=== PATIENT | female | born 1960 ===

== ENCOUNTER 2017-02-04 21:51 | Emergency (ER) | payer OTHER ==
--- NOTE | 2017-02-04 22:25 | ED ORDER SUMMARY ---
..... Patient: GEORGINA CAREY OrderSheet [facility] VisitID: [id number] [address] [place] [address] 56y, F Registration Date/Time: 02/04/2017 ORDER SHEET Weight: 60.3 kg (stated) Allergies: Compazine GENERAL ORDERS: Visual Acuity (22:13 02/04/2017 Martina Gill) ([facility] 22:15 SRedmond) (22:21 SRedmond) MEDICATION ORDERS: Proparacaine Eye Drops (Solution 0.5 %) 2 drops (NOW) (22:09 02/04/2017 Martina Gill) (22:13 Jaydon Freeman) IV FLUIDS: ORDER SHEET NOTES: [Electronically signed by Taty Kirby R.N. (22:30 02/04/2017)] [Electronically signed by Lana Felipe P.A.-C (22:32 02/04/2017)] [Electronically locked/signed by Taty Kirby R.N. (22:30 02/04/2017)]
--- NOTE | 2017-02-04 22:25 | ED NURSING NOTES ---
Clinical Report - Nurses [facility] [address] [place] [address] 02/04/2017 21:53 Patient: GEORGINA CAREY TRIAGE Triage time 22:00 Feb 04 2017. Acuity: LEVEL 3. Chief Complaint: (watering burning eyes, running nose). 22:00 02/04/17. SEPSIS SCREEN: Sepsis Screen. Negative (no infection suspected/documented). MERVAT COMA SCORE: Mervat Coma Scale: 15- eyes open spontaneously (4); best verbal response- oriented x 4 (5); best motor response- obeys commands (6). --22:03 Taty Kirby R.N. 22:00 02/04/17. BP: 155/81. HR: 87. RR: 22. O2 saturation: 97%. Temp: 98.6 F. Pain level now: 10. --22:03 Taty Kirby R.N. Weight: 60.3 kg stated. Height/Length: 64 inches Per Patient. BMI: 22.8. --21:58 Taty Kirby R.N. Medications Albuterol MDI. --22:00 Taty Kirby R.N. Medication/allergy information source: the patient. --22:03 Taty Kirby R.N. Allergies Compazine. ("twists my jaw") --22:00 Taty Kirby R.N. History Arrived by private vehicle. Historian: patient. Accompanied by family. This started today. ( states used an astringent last night and was fine. tonight, eyes started watering profusely, nothing different in daily patterns. c/o photophobia as well). No fever, weakness, cough, difficulty breathing or skin rash. Denies muscle aches. 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 PAST MEDICAL HX: Has not received seasonal influenza immunization. SOCIAL HX: Former smoker. No alcohol use or drug use. No infectious disease exposure. ABUSE ASSESSMENT: No report of abuse. FALL RISK ASSESSMENT: Fall risk assessment completed. No fall risk identified. NUTRITIONAL RISK ASSESSMENT: The nutritional risk assessment revealed no deficiencies. FUNCTIONAL ASSESSMENT: Functional assessment: no impairments noted. LEARNING NEEDS ASSESSMENT: The learning needs assessment revealed no barriers. SKIN INTEGRITY ASSESSMENT: Skin integrity risk assessment completed. No skin integrity risk identified. --22:03 Taty Kirby R.N. PROBLEMS: Dental Abscess. MRSA Infection. PTSD. Pulmonary Embolism. Asthma. Depression. --22:00 Taty Kirby R.N. ADDITIONAL SURGERIES: Oophorectomy. --22:00 Taty Kirby R.N. Interventions ID band on patient. --22:03 Taty Kirby R.N. PHYSICAL ASSESSMENT 22:07 02/04/17. Ambulatory to room. GENERAL / NEURO / PSYCH: Alert. Oriented X 4. Appears in pain and in distress. HEENT: Conjunctival findings present: redness of the right conjunctiva and redness of the left conjunctiva. ( both eyes watering continuously). RESPIRATORY: Breath sounds within normal limits. CVS: Pulses within normal limits. SKIN: Skin intact. Skin is warm and dry. Normal skin turgor. --22:07 Tayt Kirby R.N. NURSING PROGRESS NOTES 22:06 02/04/17. The initial plan of care for this patient includes an assessment with efforts to address patient positioning and appropriate ambient lighting. This plan of care was discussed with the patient. Reassurance given. Patient identifiers checked. Call light placed in reach. Side rails up x 1. Bed placed in lowest position. Brakes of bed on. Patient ready for evaluation- ED physician notified. --22:06 Taty Kirby R.N. 22:12 02/04/2017 Proparacaine Eye Drops Opthalmic solution 2 drop given. Given in both eyes. Allergies verified and confirmed 5 rights. --22:12 Taty Kirby R.N. ( Visual Acuity: Both eyes open: 20/200 Right eye only: 20/200 Left eye only: 20/200). --22:19 Sandrine Chaudhary ER Tech1. DISPOSITION / DISCHARGE 22:30 02/04/17. Departure time: 22:30 Feb 04 2017. Condition at departure: improved and stable. The goals identified in the patient's plan of care were met. No learning barriers present. Discharge instructions provided and reviewed with the patient. Reviewed medication(s) side effects, precautions, dosing and course information. Prescription(s) given to the patient. Reviewed eye care instructions. Reviewed referral to an soap grinder and a primary care physician for followup. Summary of care provided to patient via paper. Patient verbalized understanding. Written instructions provided in Sinhala. The patient was discharged home and accompanied by family. She left the Emergency Department ambulatory and via private vehicle. Family member driving. --22:30 Taty Kirby R.N. 22:00 02/04/17. BP: 155/81. HR: 87. RR: 22. O2 saturation: 97%. Temp: 98.6 F. Pain level now: 5/10. --22:30 Taty Kirby R.N. Locked/Released at 02/04/2017 22:30 by Taty Kirby R.N.
--- NOTE | 2017-02-04 22:25 | ED NURSING NOTES ---
Clinical Report - Nurses [facility] [address] [place] [address] 02/04/2017 21:53 Patient: GEORGINA CAREY TRIAGE Triage time 22:00 Feb 04 2017. Acuity: LEVEL 3. Chief Complaint: (watering burning eyes, running nose). 22:00 02/04/17. SEPSIS SCREEN: Sepsis Screen. Negative (no infection suspected/documented). MERVAT COMA SCORE: Mervat Coma Scale: 15- eyes open spontaneously (4); best verbal response- oriented x 4 (5); best motor response- obeys commands (6). --22:03 Taty Kirby R.N. 22:00 02/04/17. BP: 155/81. HR: 87. RR: 22. O2 saturation: 97%. Temp: 98.6 F. Pain level now: 10. --22:03 Taty Kirby R.N. Weight: 60.3 kg stated. Height/Length: 64 inches Per Patient. BMI: 22.8. --21:58 Taty Kirby R.N. Medications Albuterol MDI. --22:00 Taty Kirby R.N. Medication/allergy information source: the patient. --22:03 Taty Kirby R.N. Allergies Compazine. ("twists my jaw") --22:00 Taty Kirby R.N. History Arrived by private vehicle. Historian: patient. Accompanied by family. This started today. ( states used an astringent last night and was fine. tonight, eyes started watering profusely, nothing different in daily patterns. c/o photophobia as well). No fever, weakness, cough, difficulty breathing or skin rash. Denies muscle aches. 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 PAST MEDICAL HX: Has not received seasonal influenza immunization. SOCIAL HX: Former smoker. No alcohol use or drug use. No infectious disease exposure. ABUSE ASSESSMENT: No report of abuse. FALL RISK ASSESSMENT: Fall risk assessment completed. No fall risk identified. NUTRITIONAL RISK ASSESSMENT: The nutritional risk assessment revealed no deficiencies. FUNCTIONAL ASSESSMENT: Functional assessment: no impairments noted. LEARNING NEEDS ASSESSMENT: The learning needs assessment revealed no barriers. SKIN INTEGRITY ASSESSMENT: Skin integrity risk assessment completed. No skin integrity risk identified. --22:03 Taty Kirby R.N. PROBLEMS: Dental Abscess. MRSA Infection. PTSD. Pulmonary Embolism. Asthma. Depression. --22:00 Taty Kirby R.N. ADDITIONAL SURGERIES: Oophorectomy. --22:00 Taty Kirby R.N. Interventions ID band on patient. --22:03 Taty Kirby R.N. PHYSICAL ASSESSMENT 22:07 02/04/17. Ambulatory to room. GENERAL / NEURO / PSYCH: Alert. Oriented X 4. Appears in pain and in distress. HEENT: Conjunctival findings present: redness of the right conjunctiva and redness of the left conjunctiva. ( both eyes watering continuously). RESPIRATORY: Breath sounds within normal limits. CVS: Pulses within normal limits. SKIN: Skin intact. Skin is warm and dry. Normal skin turgor. --22:07 Taty Kirby R.N. NURSING PROGRESS NOTES 22:06 02/04/17. The initial plan of care for this patient includes an assessment with efforts to address patient positioning and appropriate ambient lighting. This plan of care was discussed with the patient. Reassurance given. Patient identifiers checked. Call light placed in reach. Side rails up x 1. Bed placed in lowest position. Brakes of bed on. Patient ready for evaluation- ED physician notified. --22:06 Taty Kirby R.N. 22:12 02/04/2017 Proparacaine Eye Drops Opthalmic solution 2 drop given. Given in both eyes. Allergies verified and confirmed 5 rights. --22:12 Taty Kirby R.N. ( Visual Acuity: Both eyes open: 20/200 Right eye only: 20/200 Left eye only: 20/200). --22:19 Sandrine Chaudhary ER Tech1. DISPOSITION / DISCHARGE 22:30 02/04/17. Departure time: 22:30 Feb 04 2017. Condition at departure: improved and stable. The goals identified in the patient's plan of care were met. No learning barriers present. Discharge instructions provided and reviewed with the patient. Reviewed medication(s) side effects, precautions, dosing and course information. Prescription(s) given to the patient. Reviewed eye care instructions. Reviewed referral to an pleat taper and a primary care physician for followup. Summary of care provided to patient via paper. Patient verbalized understanding. Written instructions provided in Latvian. The patient was discharged home and accompanied by family. She left the Emergency Department ambulatory and via private vehicle. Family member driving. --22:30 Taty Kirby R.N. 22:00 02/04/17. BP: 155/81. HR: 87. RR: 22. O2 saturation: 97%. Temp: 98.6 F. Pain level now: 5/10. --22:30 Taty Kirby R.N. Locked/Released at 02/04/2017 22:30 by Taty Kirby R.N.
--- NOTE | 2017-02-04 22:25 | ED CLINICAL REPORT ---
Clinical Report - Physicians/Mid Levels [facility] [address] [place] [address] 02/04/2017 21:53 Patient: GEORGINA CAREY Time Seen: 22:28 Feb 04 2017. Arrived- By private vehicle. Historian- patient. HISTORY OF PRESENT ILLNESS Chief Complaint: EYE PAIN and IRRITATION. This started yesterday, involves the right and left eye, is characterized as mild and is still present. The patient did not sustain an injury. Not injured from contact lenses. No direct trauma to the eyes. No chemical exposure or suspected foreign body in eye. Eye pain, discomfort, burning, redness and irritation. Eye itching. ( Reports supposed to wear corrective lenses, but does not. NO direct trauma, possible irritation from a cream. NO fevers, no chills. NO contact lense wearing status.). REVIEW OF SYSTEMS All systems otherwise negative, except as recorded above. PAST HISTORY No history of prior eye injury. She does not wear contact lenses. Problems: Dental Abscess. Abscess. MRSA Infection. Immunizations. PTSD. Pneumonia. Pulmonary Embolism. Asthma. Depression. Additional Surgeries: Oophorectomy. Medications: Albuterol MDI. Allergies: Compazine. ("twists my jaw"). SOCIAL HISTORY Former smoker. No alcohol use or drug use. PHYSICAL EXAM Vital Signs: 02/04/2017 22:00 BP: 155/81. HR: 87. RR: 22. O2 saturation: 97%. Temp: 98.6 F. Pain level now: 5/10. Appearance: Alert. Rt Eye: Injected conjunctiva. Pupil regular. No eyelid edema, conjunctival foreign body or EOM palsy. Eyes: Visual acuity noted. Right and left cornea examined with fluorescein stain. Eyelids appear normal to inspection. Corneas appear normal to inspection. Pupils equal, round and reactive to light. EOMs intact. Lt Eye: Left eye exam normal. Injected conjunctiva. CVS: Normal heart rate and rhythm. Heart sounds normal. Respiratory: No respiratory distress. Breath sounds normal. PROGRESS AND PROCEDURES Course of Care: clear drainage, with injection, no trauma, h/o poor vision requiring lenses, however does not wear. No signs of ulcer, no signs of dye uptake. Stable. Not trauma. Patient is stable. Symptoms better. Patient/family counseled. Disposition: Discharged. Condition: good. CLINICAL IMPRESSION Acute conjunctivitis of the right eye and left eye. INSTRUCTIONS (wilmer eye Cool packs to the eye). Prescription Medications: Tylenol with Codeine Tylenol #3 (30 mg / 300 mg) : take 1 tablet orally every 6 hours as needed for pain. Dispense ten (10). No refill. Polytrim ophthalmic solution: Instill 1 drop into affected eye every 3 hours while awake (max 6 doses per day) for 1 week. Dispense five (5) mL. No refills. Substitution is permissible. Motrin 800 mg tablets: every 8 hours for 3 days, as needed for pain. Dispense ten (10). No refill. OTC Medications: Take Benadryl according to label instructions. Available over the counter. Follow-up: Follow up with a specialist. (Electronically signed by Lana Felipe P.A.-C 02/04/2017 22:32)
--- NOTE | 2017-02-04 22:25 | ED CLINICAL REPORT ---
Clinical Report - Physicians/Mid Levels [facility] [address] [place] [address] 02/04/2017 21:53 Patient: GEORGINA CAREY Time Seen: 22:28 Feb 04 2017. Arrived- By private vehicle. Historian- patient. HISTORY OF PRESENT ILLNESS Chief Complaint: EYE PAIN and IRRITATION. This started yesterday, involves the right and left eye, is characterized as mild and is still present. The patient did not sustain an injury. Not injured from contact lenses. No direct trauma to the eyes. No chemical exposure or suspected foreign body in eye. Eye pain, discomfort, burning, redness and irritation. Eye itching. ( Reports supposed to wear corrective lenses, but does not. NO direct trauma, possible irritation from a cream. NO fevers, no chills. NO contact lense wearing status.). REVIEW OF SYSTEMS All systems otherwise negative, except as recorded above. PAST HISTORY No history of prior eye injury. She does not wear contact lenses. Problems: Dental Abscess. Abscess. MRSA Infection. Immunizations. PTSD. Pneumonia. Pulmonary Embolism. Asthma. Depression. Additional Surgeries: Oophorectomy. Medications: Albuterol MDI. Allergies: Compazine. ("twists my jaw"). SOCIAL HISTORY Former smoker. No alcohol use or drug use. PHYSICAL EXAM Vital Signs: 02/04/2017 22:00 BP: 155/81. HR: 87. RR: 22. O2 saturation: 97%. Temp: 98.6 F. Pain level now: 5/10. Appearance: Alert. Rt Eye: Injected conjunctiva. Pupil regular. No eyelid edema, conjunctival foreign body or EOM palsy. Eyes: Visual acuity noted. Right and left cornea examined with fluorescein stain. Eyelids appear normal to inspection. Corneas appear normal to inspection. Pupils equal, round and reactive to light. EOMs intact. Lt Eye: Left eye exam normal. Injected conjunctiva. CVS: Normal heart rate and rhythm. Heart sounds normal. Respiratory: No respiratory distress. Breath sounds normal. PROGRESS AND PROCEDURES Course of Care: clear drainage, with injection, no trauma, h/o poor vision requiring lenses, however does not wear. No signs of ulcer, no signs of dye uptake. Stable. Not trauma. Patient is stable. Symptoms better. Patient/family counseled. Disposition: Discharged. Condition: good. CLINICAL IMPRESSION Acute conjunctivitis of the right eye and left eye. INSTRUCTIONS (wilmer eye Cool packs to the eye). Prescription Medications: Tylenol with Codeine Tylenol #3 (30 mg / 300 mg) : take 1 tablet orally every 6 hours as needed for pain. Dispense ten (10). No refill. Polytrim ophthalmic solution: Instill 1 drop into affected eye every 3 hours while awake (max 6 doses per day) for 1 week. Dispense five (5) mL. No refills. Substitution is permissible. Motrin 800 mg tablets: every 8 hours for 3 days, as needed for pain. Dispense ten (10). No refill. OTC Medications: Take Benadryl according to label instructions. Available over the counter. Follow-up: Follow up with a specialist. (Electronically signed by Lana Felipe P.A.-C 02/04/2017 22:32)
--- NOTE | 2017-02-04 22:25 | ED ORDER SUMMARY ---
..... Patient: GEORGINA CAREY OrderSheet [facility] VisitID: [id number] [address] [place] [address] 56y, F Registration Date/Time: 02/04/2017 ORDER SHEET Weight: 60.3 kg (stated) Allergies: Compazine GENERAL ORDERS: Visual Acuity (22:13 02/04/2017 Martina Gill) ([facility] 22:15 SRedmond) (22:21 SRedmond) MEDICATION ORDERS: Proparacaine Eye Drops (Solution 0.5 %) 2 drops (NOW) (22:09 02/04/2017 Martina Gill) (22:13 Jaydon Freeman) IV FLUIDS: ORDER SHEET NOTES: [Electronically signed by Taty Kirby R.N. (22:30 02/04/2017)] [Electronically signed by Lana Felipe P.A.-C (22:32 02/04/2017)] [Electronically locked/signed by Taty Kirby R.N. (22:30 02/04/2017)]
--- NOTE | 2017-02-04 22:32 | ED DISCHARGE INSTRUCTIONS ---
Patient: GEORGINA CAREY General Instructions [facility] VisitID: [id number] [place] [address] 56y, F Registration Date/Time: 02/04/2017 Acute conjunctivitis of the right eye and left eye. INSTRUCTIONS (guillen eye Cool packs to the eye). Prescription Medications: Tylenol with Codeine Tylenol #3 (30 mg / 300 mg) : take 1 tablet orally every 6 hours as needed for pain. Dispense ten (10). No refill. Polytrim ophthalmic solution: Instill 1 drop into affected eye every 3 hours while awake (max 6 doses per day) for 1 week. Dispense five (5) mL. No refills. Substitution is permissible. Motrin 800 mg tablets: every 8 hours for 3 days, as needed for pain. Dispense ten (10). No refill. OTC Medications: Take Benadryl according to label instructions. Available over the counter. Follow-up: Follow up with a specialist. ADDITIONAL INFORMATION Conjunctivitis, Non-Specific The membrane that covers your eye is inflamed. Any itching, burning or irritation should go away within the next 24 hours. Conjunctivitis may be related to a particle that was in your eye. If so, it was washed out with your tears or irrigation treatment. Being exposed to liquid chemicals or fumes may also cause this reaction. Your condition does not appear to be due to an eye infection. Home Care: Apply a cold pack (ice in a plastic bag, wrapped in a towel) over the eye for 20 minutes at a time. This will reduce pain. Eye drops may be prescribed to reduce irritation or redness. Otherwise, Visine or similar zcrm-[id number] decongestant eye drops may be used. You may use acetaminophen (Tylenol) or ibuprofen (Motrin, Advil) to control pain, unless another medicine was prescribed. [ NOTE: If you have chronic liver or kidney disease or ever had a stomach ulcer or GI bleeding, talk with your doctor before using these medicines.] Follow Up with your doctor or this facility as directed, or if your symptoms have not improved after 24 hours. Get Prompt Medical Attention if any of the following occur: Increased eyelid swelling Increase in eye pain Increased redness or drainage from the eye Failure of normal vision to return within 24-48 hours. Acetaminophen, Codeine Phosphate Oral tablet What is this medicine? ACETAMINOPHEN; CODEINE (a set a ROBI yassine arnie; IGNACIO olvera) is a pain reliever. It is used to treat mild to moderate pain. How should I use this medicine? Take this medicine by mouth with a full glass of water. Follow the directions on the prescription label. If the medicine upsets your stomach, take the medicine with food or milk. Do not take more medicine than you are told to take. Talk to your insurance counsel regarding the use of this medicine in children. Special care may be needed. What side effects may I notice from receiving this medicine? Side effects that you should report to your doctor or health animal daycare provider as soon as possible: allergic reactions like skin rash, itching or hives, swelling of the face, lips, or tongue breathing difficulties, wheezing confusion light headedness or fainting spells severe stomach pain yellowing of the skin or the whites of the eyes Side effects that usually do not require medical attention (report to your doctor or health animal daycare provider if they continue or are bothersome): dizziness drowsiness nausea, vomiting What may interact with this medicine? alcohol antihistamines benztropine drugs for bladder problems like solifenacin, trospium, oxybutynin, tolterodine, hycosamine, and methscopolamine drugs for breathing problems like ipratropium and tiotropium drugs for certain stomach or intestine problems like propantheline, homatropine methylbromide, glycopyrrolate, atropine, belladonna, and dicyclomine medicines for depression, anxiety, or psychotic disturbances medicines for sleep muscle relaxants naltrexone narcotic medicines (opiates) for pain phenothiazines like perphenazine, thioridazine, chlorpromazine, mesoridazine, fluphenazine, prochlorperazine, promazine, trifluoperazine scopolamine tramadol trihexyphenidyl What if I miss a dose? If you miss a dose, take it as soon as you can. If it is almost time for your next dose, take only that dose. Do not take double or extra doses. Where should I keep my medicine? Keep out of the reach of children. This medicine can be abused. Keep your medicine in a safe place to protect it from theft. Do not share this medicine with anyone. Selling or giving away this medicine is dangerous and against the law. Store at room temperature between 15 and 30 degrees C (59 and 86 degrees F). Protect from light. Keep container tightly closed. Throw away any unused medicine after the expiration date. Discard unused medicine and used packaging carefully. Pets and children can be harmed if they find used or lost packages. What should I tell my health care provider before I take this medicine? They need to know if you have any of these conditions: brain tumor Crohn's disease, inflammatory bowel disease, or ulcerative colitis drink more than 3 alcohol containing drinks per day drug abuse or addiction head injury heart or circulation problems kidney disease or problems going to the bathroom liver disease lung disease, asthma, or breathing problems an unusual or allergic reaction to acetaminophen, codeine, salicylates, other opioid analgesics, other medicines, foods, dyes, or preservatives or trying to get breast-feeding What should I watch for while using this medicine? Tell your doctor or health animal daycare provider if your pain does not go away, if it gets worse, or if you have new or a different type of pain. You may develop tolerance to the medication. Tolerance means that you will need a higher dose of the medication for pain relief. Tolerance is normal and is expected if you take the medicine for a long time. Do not suddenly stop taking your medicine because you may develop a severe reaction. Your body becomes used to the medicine. This does NOT mean you are addicted. Addiction is a behavior related to getting and using a drug for a non medical reason. If you have pain, you have a medical reason to take pain medicine. Your doctor will tell you how much medicine to take. If your doctor wants you to stop the medicine, the dose will be slowly lowered over time to avoid any side effects. You may get drowsy or dizzy. Do not drive, use machinery, or do anything that needs mental alertness until you know how this medicine affects you. Do not stand or sit up quickly, especially if you are an older patient. This reduces the risk of dizzy or fainting spells. Alcohol may interfere with the effect of this medicine. Avoid alcoholic drinks. There are different types of narcotic medicines (opiates) for pain. If you take more than one type at the same time, you may have more side effects. Give your health care provider a list of all medicines you use. Your doctor will tell you how much medicine to take. Do not take more medicine than directed. Call emergency for help if you have problems breathing. The medicine will cause constipation. Try to have a bowel movement at least every 2 to 3 days. If you do not have a bowel movement for 3 days, call your doctor or health animal daycare provider. Do not take Tylenol (acetaminophen) or medicines that have acetaminophen with this medicine. Too much acetaminophen can be very dangerous. Many nonprescription medicines contain acetaminophen. Always read the labels carefully to avoid taking more acetaminophen. Immediately call your physician or get emergency help if you are breast-feeding and your baby is sleepier than usual, is limp, or has difficulty or breathing. You have been given the following additional information: Conjunctivitis, Non-Specific Acetaminophen, Codeine Phosphate Oral tablet (Electronically signed by Lana Felipe P.A.-C 02/04/2017 22:32)
--- NOTE | 2017-02-04 22:32 | ED MED RECONCILIATION SUMMARY ---
Patient: GEORGINA CAREY Medication Reconciliation Report [facility] VisitID: [id number] [address] [place] [address] 56y, F Registration Date/Time: 02/04/2017 Weight: 60.3 kg Height/Length: 64 in. BMI: 22.8 ALLERGIES: Compazine The patient's Home Medications are listed below: THE FOLLOWING MEDICATIONS NEED TO BE RECONCILED: Albuterol I The source(s) of the original Home Medication information: patient The following Medications were given to the patient in the Emergency Department: Proparacaine [Eye Drops] Eye Drops 2 drop, administered: 02/04/2017 10:12:00 PM The following Medications were prescribed to the patient: Take Benadryl according to label instructions. Available over the counter. -- Lana Felipe, P.A.-C Tylenol with Codeine Tylenol #3 (30 mg / 300 mg) : take 1 tablet orally every 6 hours as needed for pain. Dispense ten (10). No refill. -- Lana Felipe, P.A.-C Polytrim ophthalmic solution: Instill 1 drop into affected eye every 3 hours while awake (max 6 doses per day) for 1 week. Dispense five (5) mL. No refills. Substitution is permissible. -- Lana Felipe, P.A.-C Motrin 800 mg tablets: every 8 hours for 3 days, as needed for pain. Dispense ten (10). No refill. -- Lana Felipe, P.A.-C
--- NOTE | 2017-02-04 22:32 | ED MED RECONCILIATION SUMMARY ---
Patient: GEORGINA CAREY Medication Reconciliation Report [facility] VisitID: [id number] [address] [place] [place] [address] 56y, F Registration Date/Time: 02/04/2017 Weight: 60.3 kg Height/Length: 64 in. BMI: 22.8 ALLERGIES: Compazine The patient's Home Medications are listed below: THE FOLLOWING MEDICATIONS NEED TO BE RECONCILED: Albuterol I The source(s) of the original Home Medication information: patient The following Medications were given to the patient in the Emergency Department: Proparacaine [Eye Drops] Eye Drops 2 drop, administered: 02/04/2017 10:12:00 PM The following Medications were prescribed to the patient: Take Benadryl according to label instructions. Available over the counter. -- Lana Felipe, P.A.-C Tylenol with Codeine Tylenol #3 (30 mg / 300 mg) : take 1 tablet orally every 6 hours as needed for pain. Dispense ten (10). No refill. -- Lana Felipe, P.A.-C Polytrim ophthalmic solution: Instill 1 drop into affected eye every 3 hours while awake (max 6 doses per day) for 1 week. Dispense five (5) mL. No refills. Substitution is permissible. -- Lana Felipe, P.A.-C Motrin 800 mg tablets: every 8 hours for 3 days, as needed for pain. Dispense ten (10). No refill. -- Lana Felipe, P.A.-C
--- NOTE | 2017-02-04 22:32 | ED MAR SUMMARY ---
..... Medication Administration Record [facility] [address] [place] [address] Patient: GEORGINA CAREY Visit ID: [id number] 56y, F Weight: 60.3 kg Height/Length: 64 in BMI: 22.8 ALLERGIES: Compazine Given 22:12 02/04/2017 Taty Kirby R.N. Medication Administered: PROPARACAINE [EYE DROPS], Dose: 2 drop Opthalmic solution Eye Drops. Medication Ordered: Proparacaine Eye Drops (Solution 0.5 %) 2 drops (NOW).
--- NOTE | 2017-02-04 22:32 | ED MAR SUMMARY ---
..... Medication Administration Record [facility] [address] [place] [address] Patient: GEORGINA CAREY Visit ID: [id number] 56y, F Weight: 60.3 kg Height/Length: 64 in BMI: 22.8 ALLERGIES: Compazine Given 22:12 02/04/2017 Taty Kirby R.N. Medication Administered: PROPARACAINE [EYE DROPS], Dose: 2 drop Opthalmic solution Eye Drops. Medication Ordered: Proparacaine Eye Drops (Solution 0.5 %) 2 drops (NOW).
--- NOTE | 2017-02-04 22:32 | ED DISCHARGE INSTRUCTIONS ---
Patient: GEORGINA CAREY General Instructions [facility] VisitID: [id number] [place] [address] 56y, F Registration Date/Time: 02/04/2017 Acute conjunctivitis of the right eye and left eye. INSTRUCTIONS (guillen eye Cool packs to the eye). Prescription Medications: Tylenol with Codeine Tylenol #3 (30 mg / 300 mg) : take 1 tablet orally every 6 hours as needed for pain. Dispense ten (10). No refill. Polytrim ophthalmic solution: Instill 1 drop into affected eye every 3 hours while awake (max 6 doses per day) for 1 week. Dispense five (5) mL. No refills. Substitution is permissible. Motrin 800 mg tablets: every 8 hours for 3 days, as needed for pain. Dispense ten (10). No refill. OTC Medications: Take Benadryl according to label instructions. Available over the counter. Follow-up: Follow up with a specialist. ADDITIONAL INFORMATION Conjunctivitis, Non-Specific The membrane that covers your eye is inflamed. Any itching, burning or irritation should go away within the next 24 hours. Conjunctivitis may be related to a particle that was in your eye. If so, it was washed out with your tears or irrigation treatment. Being exposed to liquid chemicals or fumes may also cause this reaction. Your condition does not appear to be due to an eye infection. Home Care: Apply a cold pack (ice in a plastic bag, wrapped in a towel) over the eye for 20 minutes at a time. This will reduce pain. Eye drops may be prescribed to reduce irritation or redness. Otherwise, Visine or similar lwud-iub-[id number] decongestant eye drops may be used. You may use acetaminophen (Tylenol) or ibuprofen (Motrin, Advil) to control pain, unless another medicine was prescribed. [ NOTE: If you have chronic liver or kidney disease or ever had a stomach ulcer or GI bleeding, talk with your doctor before using these medicines.] Follow Up with your doctor or this facility as directed, or if your symptoms have not improved after 24 hours. Get Prompt Medical Attention if any of the following occur: Increased eyelid swelling Increase in eye pain Increased redness or drainage from the eye Failure of normal vision to return within 24-48 hours. Acetaminophen, Codeine Phosphate Oral tablet What is this medicine? ACETAMINOPHEN; CODEINE (a set a ROBI yassine arnie; IGNACIO olvera) is a pain reliever. It is used to treat mild to moderate pain. How should I use this medicine? Take this medicine by mouth with a full glass of water. Follow the directions on the prescription label. If the medicine upsets your stomach, take the medicine with food or milk. Do not take more medicine than you are told to take. Talk to your manager licensing regarding the use of this medicine in children. Special care may be needed. What side effects may I notice from receiving this medicine? Side effects that you should report to your doctor or health day care attendant as soon as possible: allergic reactions like skin rash, itching or hives, swelling of the face, lips, or tongue breathing difficulties, wheezing confusion light headedness or fainting spells severe stomach pain yellowing of the skin or the whites of the eyes Side effects that usually do not require medical attention (report to your doctor or health day care attendant if they continue or are bothersome): dizziness drowsiness nausea, vomiting What may interact with this medicine? alcohol antihistamines benztropine drugs for bladder problems like solifenacin, trospium, oxybutynin, tolterodine, hycosamine, and methscopolamine drugs for breathing problems like ipratropium and tiotropium drugs for certain stomach or intestine problems like propantheline, homatropine methylbromide, glycopyrrolate, atropine, belladonna, and dicyclomine medicines for depression, anxiety, or psychotic disturbances medicines for sleep muscle relaxants naltrexone narcotic medicines (opiates) for pain phenothiazines like perphenazine, thioridazine, chlorpromazine, mesoridazine, fluphenazine, prochlorperazine, promazine, trifluoperazine scopolamine tramadol trihexyphenidyl What if I miss a dose? If you miss a dose, take it as soon as you can. If it is almost time for your next dose, take only that dose. Do not take double or extra doses. Where should I keep my medicine? Keep out of the reach of children. This medicine can be abused. Keep your medicine in a safe place to protect it from theft. Do not share this medicine with anyone. Selling or giving away this medicine is dangerous and against the law. Store at room temperature between 15 and 30 degrees C (59 and 86 degrees F). Protect from light. Keep container tightly closed. Throw away any unused medicine after the expiration date. Discard unused medicine and used packaging carefully. Pets and children can be harmed if they find used or lost packages. What should I tell my health care provider before I take this medicine? They need to know if you have any of these conditions: brain tumor Crohn's disease, inflammatory bowel disease, or ulcerative colitis drink more than 3 alcohol containing drinks per day drug abuse or addiction head injury heart or circulation problems kidney disease or problems going to the bathroom liver disease lung disease, asthma, or breathing problems an unusual or allergic reaction to acetaminophen, codeine, salicylates, other opioid analgesics, other medicines, foods, dyes, or preservatives or trying to get breast-feeding What should I watch for while using this medicine? Tell your doctor or health day care attendant if your pain does not go away, if it gets worse, or if you have new or a different type of pain. You may develop tolerance to the medication. Tolerance means that you will need a higher dose of the medication for pain relief. Tolerance is normal and is expected if you take the medicine for a long time. Do not suddenly stop taking your medicine because you may develop a severe reaction. Your body becomes used to the medicine. This does NOT mean you are addicted. Addiction is a behavior related to getting and using a drug for a non medical reason. If you have pain, you have a medical reason to take pain medicine. Your doctor will tell you how much medicine to take. If your doctor wants you to stop the medicine, the dose will be slowly lowered over time to avoid any side effects. You may get drowsy or dizzy. Do not drive, use machinery, or do anything that needs mental alertness until you know how this medicine affects you. Do not stand or sit up quickly, especially if you are an older patient. This reduces the risk of dizzy or fainting spells. Alcohol may interfere with the effect of this medicine. Avoid alcoholic drinks. There are different types of narcotic medicines (opiates) for pain. If you take more than one type at the same time, you may have more side effects. Give your health care provider a list of all medicines you use. Your doctor will tell you how much medicine to take. Do not take more medicine than directed. Call emergency for help if you have problems breathing. The medicine will cause constipation. Try to have a bowel movement at least every 2 to 3 days. If you do not have a bowel movement for 3 days, call your doctor or health day care attendant. Do not take Tylenol (acetaminophen) or medicines that have acetaminophen with this medicine. Too much acetaminophen can be very dangerous. Many nonprescription medicines contain acetaminophen. Always read the labels carefully to avoid taking more acetaminophen. Immediately call your physician or get emergency help if you are breast-feeding and your baby is sleepier than usual, is limp, or has difficulty or breathing. You have been given the following additional information: Conjunctivitis, Non-Specific Acetaminophen, Codeine Phosphate Oral tablet (Electronically signed by Lana Felipe P.A.-C 02/04/2017 22:32)
== END 2017-02-04 22:30 | disposition home or self-care (01) ==
LOC: ED SRH 21:51
DX: H10.33 Unspecified acute conjunctivitis, bilateral (principal); Z88.8 Allergy status to other drugs, medicaments and biological substances